=== PATIENT | male | born 1985 | race Caucasian/White ===

== ENCOUNTER 2020-07-18 07:08 | Emergency (ER) | payer OTHER ==
[~2020-07-18] VITALS: Wt 82.8 kg
[~2020-07-18 07:08] MED LIST: CIPRO 500MG TA500 MG PO; FLOMAX 0.40.4 MG/CAP PO; KETOROLAC TROME10 MG PO
[2020-07-18 07:28] LABS: URINE WBC 0 /hpf (0-3)
[2020-07-18 07:39] LABS: URINE APPEARANCE CLOUDY; URINE BILIRUBIN NEGATIVE (NEGATIVE); URINE BLOOD 250 ery/uL (NEGATIVE); URINE COLOR YELLOW; URINE GLUCOSE NEGATIVE (NEGATIVE); URINE KETONE NEGATIVE (NEGATIVE); URINE LEUKOCYTE ESTERASE NEGATIVE (NEGATIVE); URINE MUCUS PRESENT (NOT PRESENT); URINE NITRATE NEGATIVE (NEGATIVE); URINE PROTEIN(semi-quant) 1+ mg/dL (NEGATIVE); URINE UROBILINOGEN NORMAL (NORMAL)
[2020-07-18 08:18] LABS: BASO # 0.1 (0.02-0.10); EOS # 0.3 (0.04-0.40); HEMATOCRIT 52.2 % (42.0-52.0); HEMOGLOBIN 17.8 g/dL (13.5-18.0); LYMPH# 2.9 (1.50-4.00); MEAN CELL VOLUME 90 fl (78-100); MEAN CORPUSCULAR HEMOGLOBIN 31 pg (27-31); MEAN CORPUSCULAR HGB CONC 34 g/dL (33-37); MEAN PLATELET VOLUME 10.3 fl (7.4-10.4); MONO # 0.9 (0.20-0.80); NEU # 7.2 (1.40-6.50); PLATELET COUNT 291 K/mm3 (130-400); RED BLOOD COUNT 5.79 M/mm3 (4.20-5.60); RED CELL DISTRIBUTION WIDTH 13.3 % (11.5-14.5); WHITE BLOOD COUNT 11.5 K/mm3 (4.8-10.8)
[2020-07-18 08:21] LABS: POTASSIUM 3.8 mmol/L (3.5-5.1)
[2020-07-18 08:23] LABS: TOTAL PROTEIN 6.7 g/dL (6.4-8.3)
[2020-07-18 08:25] LABS: TOTAL BILIRUBIN 0.6 mg/dL (0.2-1.2)
[2020-07-18] MEDS ORDERED: OXYCODONE HYDROC5 M1 PO (09:29)
[2020-07-18] MEDS ORDERED: ZOFRAN ODT4 MG PO (09:29)
[2020-07-18] MEDS ORDERED: FLOMAX0.4 MG PO (09:31)
[2020-07-18 09:41] VITALS: BP 146/82
== END 2020-07-18 09:46 | disposition home or self-care (01) ==
LOC: ED 07:08
PROVIDERS: Physician Assistant
DX: N20.0 Calculus of kidney (principal); N50.812 Left testicular pain; F17.210 Nicotine dependence, cigarettes, uncomplicated; Z11.3 Encounter for screening for infections with a predominantly sexual mode of transmission; Z87.442 Personal history of urinary calculi
CPT/HCPCS: J1885; J2270